=== PATIENT | female | born 1990 | race Caucasian/White ===

== ENCOUNTER 2017-01-16 11:45 | Emergency (ER) | payer OTHER ==
[~2017-01-16] VITALS: Ht 172.7 cm; Wt 78.5 kg
[2017-01-16 11:58] VITALS: Ht 172.7 cm; Wt 78.5 kg
--- NOTE | 2017-01-16 12:48 | RADRPT ---
PROCEDURE: XR Chest. CLINICAL INDICATION: Cough and shortness of breath TECHNIQUE: Single frontal chest x-ray. COMPARISON: None. FINDINGS: The lungs are adequately expanded and clear. There is no focal consolidation, pleural effusion, or pneumothorax. The heart and mediastinal contours are unremarkable. Bones are unremarkable. There a re no acute fractures. RPTAT: QQ IMPRESSION: No acute cardiopulmonary abnormality. .Kaitlyn Casey MD, MD Date Time Electronically viewed and signed by .Kaitlyn Casey MD, MD on 01/16/2017 12:48 .T/
[2017-01-16] MEDS ORDERED: AZIT250T94 PO (13:25)
[2017-01-16] MEDS ORDERED: D-ME473S18 PO (13:26)
[2017-01-16] MEDS ORDERED: PSEU120T51 PO (13:30)
--- NOTE | 2017-01-16 14:03 | ERD ---
ER Documentation Chief Complaint Date/Time DATE: 01/16/17 TIME: 14:00 Chief Complaint COUGH & SINUS CONGESTION X4 DAYS HPI This is a 26-year-old female presents to the ER with cough and sinus congestion for the last 4 days. Patient states that today she felt a lot of congestion and was having difficulty in breathing. Cough is dry and constant, worse at night. Patient has had these symptoms since Sunday and she states that they are getting a lot worse. She does admit to some chest pain with coughing only. Patient denies any fevers or chills. She currently takes albuterol and Qvar prescribed by her primary care doctor however has not been diagnosed with asthma. Patient denies any hemoptysis. There are no sick contacts at home. ROS 12 point review of systems was done, all negative except per HPI. Medications Home Meds Active Scripts Pseudoephedrine Hcl (Sudafed 12 Hour) 120 Mg Tablet.sa, 120 MG PO BID for 3 Days Prov:CATHERINE FISHER 01/16/17 Dextromethorphan Hb-Promethazine Hcl (Promethazine DM Syrup) 473 Ml Syrup, 10 ML PO Q6H Y for COUGH, #4 OZ Prov:CATHERINE FISHER 01/16/17 Azithromycin* (Zithromax*) 250 Mg Tablet, 250 MG PO .ZPACK DIRECTED, #6 TAB TAKE 500 MG (2 TABS) THE FIRST DAY THEN 250 MG (1 TAB) DAYS 2-5 Prov:CATHERINE FISHER 01/16/17 Allergies Allergies: Coded Allergies: No Known Allergy (Unverified , 11/24/14) PMhx/Soc History of Surgery: No Anesthesia Reaction: No Hx Neurological Disorder: No Hx Respiratory Disorders: No Hx Cardiac Disorders: No Hx Psychiatric Problems: Yes (anxiety/depression) Hx Miscellaneous Medical Probl: No Hx Alcohol Use: No Hx Substance Use: No Hx Tobacco Use: No Smoking Status: Never smoker Physical Exam Vitals Vital Signs Date Time Temp Pulse Resp B/P Pulse Ox O2 Delivery O2 Flow Rate FiO2 01/16/17 11:58 97.5 64 22 144/71 97 Physical Exam GENERAL: The patient is well-developed, well-nourished, in no acute distress. NECK: Cervical spine is non tender with no step off. Supple, no nuchal rigidity HEENT: Atraumatic. Pupils equal, round and reactive to light. Extraocular muscles are grossly intact. Conjunctivae pink, no discharge. Bilateral tympanic membranes are clear with no evidence of erythema, effusion or dulling of the light reflex. Tonsilar erythema with no exudates or uvular deviation. Clear rhinorrhea. RESPIRATORY: Clear to auscultation bilaterally. There are no rales, wheezes or rhonchi. HEART: Regular rate and rhythm. No murmurs, clicks, rubs or gallops. EXTREMITIES: No clubbing or cyanosis. Full range of motion. Grossly neurovascularly intact. NEUROLOGIC: Alert and oriented. Cranial nerves II through XII are intact. SKIN: There is no rash. The skin is warm and dry. Procedures/MDM EKG was done and read and signed by my supervising physician Dr. Castro 60bpm no ST elevation or t wave inversion. Differential diagnosis includes but is not limited to; Viral URI, allergic rhinitis, bronchitis, pertussis,pneumonia. Patient likely has bronchitis, she was treated with azithromycin and promethazine secondary to length and severity of symptoms.. Clinical suspicion for pneumonia is low as patient appears well, is not hypoxic or in any respiratory distress. Additionally, patients physical examination is benign. Plan was discussed with patient they understand and agree. Patient needs to follow up with PCP in 1-2 days or return to ER sooner if symptoms worsen. Departure Diagnosis: Primary Impression: Upper respiratory infection Condition: Stable Patient Instructions: What Is Bronchitis? Additional Instructions: Call your primary care doctor TOMORROW for an appointment during the next 1-2 days.See the doctor sooner or return here if your condition worsens before your appointment time. CATHERINE FISHER Jan 16, 2017 14:03
== END 2017-01-16 13:35 | disposition home or self-care (01) ==
LOC: FTE 11:45
DX: J06.9 Acute upper respiratory infection, unspecified (principal); R07.9 Chest pain, unspecified
CPT/HCPCS: 71010; 93005